=== PATIENT | female | born 1990 | race Caucasian/White ===

== ENCOUNTER 2019-12-24 17:33 | Emergency (ER) | payer OTHER ==
[~2019-12-24] VITALS: Ht 167.6 cm; Wt 62.0 kg
[2019-12-24 17:38] VITALS: BP 145/86
--- NOTE | 2019-12-24 17:41 | NUR ---
KRIS CASTRO FROM [facility], PT WITH ALLERGIC REACTION TO GEODON. PT STATES SHE HAS BEEN TAKING GEODON FOR FIVE DAYS NOW FOR BIPOLAR. PT BEGAN TO HAVE THROAT SWELLING AND SOB. SHE WAS MEDICATED AT THE [facility] WITH BENEDRYL/ALBUTEROL/SOLUMEDROL. PT NOW DENIES SOB/DIFFICULTY BREATHING NO STRIDOR HEARD. PT SATING 98% RA
== END 2019-12-24 19:08 | disposition home or self-care (01) ==
LOC: ED 18:10
DX: T78.49XA Other allergy, initial encounter (principal); Z87.891 Personal history of nicotine dependence
CPT/HCPCS: 93005; 99283